=== PATIENT | male | born 1985 | race African-American/Black ===

== ENCOUNTER 2017-08-27 18:04 | Emergency (ER) | payer OTHER ==
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
[2017-08-27 18:21] VITALS: BP 113/78
[2017-08-27] MEDS ORDERED: IBUPROFEN 200 MG TABLET PO ONE (18:46)
--- NOTE | 2017-08-27 19:09 | Diagnostic Imaging Report ---
[facility] [address] [facility] [address] [id number] Report Submission Date: Aug 27, 2017 6:43:20 PM RECREATIONAL LEADER Patient Study Name: IRAM OWEN Date: Aug 27, 2017 6:21:22 PM RECREATIONAL LEADER Modality Type: CR Gender: M Description: UPPER EXTREMITY : 81 Institution: [facility] Physician: JASON FREED Right hand, 3 views History: Pain Findings: The osseous, joints and soft tissue structures are normal. Impression: Normal. Electronically signed on Aug 27, 2017 6:43:20 PM RECREATIONAL LEADER by: Dewayne VERNON
== END 2017-08-27 18:55 | disposition home or self-care (01) ==
LOC: ED 18:04
DX: M79.641 Pain in right hand (principal)
CPT/HCPCS: 73130; 99282; 99283